=== PATIENT | female | born 1985 | race Caucasian/White ===

== ENCOUNTER 2016-10-17 23:42 | Inpatient (IN) | payer MEDICARE, OTHER ==
--- NOTE | ~2016-10-17 | PUL ---
[address] [place]. [address] NAME: VINNY RODRIGUEZ : 83 STATUS : DIS IN PAT#: [id number] AGE: 31 ADM/REG DATE : 10/18/16 MR#: [id number] REPORT SERV DATE: 10/21/16 DICTATED BY: TIMA HOROWITZ DATE: 10/21/16 REPORT STATUS : Draft TRANSCRIBED BY: MODL DATE: 10/21/16 PULMONARY FUNCTION TEST OVERNIGHT PULSE OXIMETRY TEST: Overnight pulse oximetry on 5 L nasal cannula. The patient was then placed on 50% venturi mask. DATA: 1. 6 hours 37 minutes, mean pulse 104, mean oxygen saturation 95.7%. 2. Time with an oxygen saturation less than 88%, 8 minutes and 4 seconds. 2.0% of the night. INTERPRETATION: Upon review of the data, the patient has significant hypoxemia, looking at the SpO2 curve other than desaturations noted around 130, normal curve, but clinical concern for underlying sleep apnea would always be of concern. Clinical correlation is recommended. HFQ/ROSEMARIE Tima Horowitz MD / [id number] CC: Chu Douglass M.D.
--- NOTE | ~2016-10-17 | HP ---
History And Physical [address] [place]. [address] NAME: VINNY RODRIGUEZ : 83 STATUS : ADM IN [facility] WITH [facility]#: [id number] AGE: 31 ADM/REG DATE : 10/18/16 MR#: [id number] REPORT SERV DATE: 10/18/16 DICTATED BY: JOURDAN HERRERA DATE: 10/18/16 REPORT STATUS : Draft TRANSCRIBED BY: MODL DATE: 10/18/16 DATE OF ADMISSION: 10/18/2016 CHIEF COMPLAINT: A 31-year-old female presenting with urinary tract infection and bacteremia. HISTORY OF PRESENT ILLNESS: The patient's history was obtained through careful interview with the patient, coupled with review of [facility] medical records. The patient began to feel ill on 10/13/2016, with fevers, chills, decreased appetite, nausea, but no vomiting. She has noticed increasing dysuria and a foul odor to her urine with a dark discoloration. She has urinary frequency that especially affects her at nighttime. She came into the emergency department on the day prior to this admission, was given outpatient treatment for urinary tract infection and blood cultures were checked. Today her blood cultures came back positive 2/2 for gram negative jae E. coli, and so she was directed back to the hospital and she admits that she has had no improvement in her symptoms over the last 24 hours, and in fact, she feels as if she is worsening. She describes right flank greater than left flank discomfort, a sharp quality, 5/10 severity that is fairly constant. No shortness of breath. No chest pain. No lightheadedness. No confusion. REVIEW OF SYSTEMS: Otherwise, a 14-point review of systems was obtained and was negative. PAST MEDICAL HISTORY: 1. Obstructive sleep apnea, but noncompliant and intolerant of CPAP. 2. Bipolar disorder. 3. Morbid obesity with a body mass index of 65. 4. Aspiration pneumonia. 5. Previous urinary tract infection. PAST SURGICAL HISTORY: 1. Hysterectomy. 2. Cholecystectomy. 3. Right ankle surgery x5. 4. Bilateral ptosis repair when she was 4 years old. ALLERGIES: NO KNOWN DRUG ALLERGIES. SOCIAL HISTORY: The patient is a smoker. Does not drink alcohol. She is disabled. Lives History And Physical [address] [address] NAME: VINNY RODRIGUEZ : [birth year] STATUS : ADM IN PAT#: [id number] AGE: 31 ADM/REG DATE : 10/18/16 MR#: [id number] REPORT SERV DATE: 10/18/16 DICTATED BY: JOURDAN HERRERA DATE: 10/18/16 REPORT STATUS : Draft TRANSCRIBED BY: ROSEMARIE DATE: 10/18/16 in [place], [place]. She lives with her parents and sister. She has three children at home as well, ages 6, 7, and 14. FAMILY HISTORY: Heart disease. CURRENT MEDICATIONS: 1. Albuterol inhaler. 2. BuSpar 15 mg p.o. b.i.d. 3. Roxicodone 5 mg every 8 hours p.r.n. 4. Geodon 40 mg p.o. b.i.d. PHYSICAL EXAMINATION: VITAL SIGNS: Temperature 99.8, pulse 125, blood pressure 140/65, respiratory rate 18, and O2 saturation 84% on room air. GENERAL: An ill-appearing female, in no evidence of severe distress though. HEENT: Pupils equal, round, and reactive to light. No conjunctival pallor. No scleral icterus. Nares are patent. Oropharynx is clear of obstruction. Moist mucous membranes. NECK: Trachea midline. No thyromegaly. LYMPH: No cervical lymphadenopathy. No supraclavicular lymphadenopathy. RESPIRATORY: Clear to auscultation at bases. No wheezes, rales, or rhonchi. Normal respiratory effort. CARDIOVASCULAR: Tachycardic. Regular rhythm. No murmurs, rubs, or gallops. No extremity edema is appreciated. ABDOMEN: Central pattern of morbid obesity, nontender though. No specific suprapubic abdominal discomfort. I do not appreciate flank tenderness currently on exam. The patient has a nondistended abdomen with no hepatosplenomegaly that can be appreciated. DERMATOLOGICAL: Warm and dry extremities. No pallor. No cyanosis. PSYCHIATRIC: Normal affect. Good mood. Alert and oriented x3. LABORATORY DATA: White blood cell count 10.9, hemoglobin 12, hematocrit 39, and platelets 219. Sodium 139, potassium 3.7, chloride 100, bicarb 30, BUN 8, creatinine 1.06, glucose 121, and albumin 2.6. Serum test negative. Influenza negative. Lactic acid 1.2. Liver enzymes within normal limits. Urinalysis shows large leukocyte esterase, positive nitrites, 94 white blood cells. Blood cultures x2 are positive for gram-negative jae E. coli. History And Physical [address] [place]. [address] NAME: VINNY RODRIGUEZ : 83 STATUS : ADM IN [facility] WITH [facility]#: [id number] AGE: 31 ADM/REG DATE : 10/18/16 MR#: [id number] REPORT SERV DATE: 10/18/16 DICTATED BY: JOURDAN HERRERA DATE: 10/18/16 REPORT STATUS : Draft TRANSCRIBED BY: MODL DATE: 10/18/16 STUDIES: 1. Chest x-ray by my own evaluation shows no acute abnormality, but the patient does have difficult to interpret chest x-ray because of large body habitus. 2. EKG by my own evaluation shows sinus tachycardia. ASSESSMENT AND PLAN: 1. Escherichia coli bacteremia with sepsis. Place on IV antibiotics. Provide supportive care. Negative lactic acid. 2. Urinary tract infection. Await urine culture. Place on IV antibiotics. 3. Obstructive sleep apnea, noncompliant and intolerant of CPAP. Continuous O2 saturation monitor. 4. Morbid obesity. Body mass index of 65. KPL/MODL Jourdan Herrera M.D. / [id number] CC: Chu Douglass M.D.
--- NOTE | ~2016-10-17 | CN ---
Consultation Report [facility] [address] [place]. [address] NAME: LUCERO RODRIGUEZ : 83 STATUS : ADM IN PAT#: [id number] AGE: 31 ADM/REG DATE : 10/18/16 MR#: [id number] REPORT SERV DATE: 10/20/16 DICTATED BY: MAURIZIO RODRIGUES DATE: 10/19/16 REPORT STATUS : Draft TRANSCRIBED BY: MODL DATE: 10/19/16 CONSULTATION NOTE DATE OF CONSULTATION: 10/19/2016 CHIEF COMPLAINT: Hypoxemia and hypercapnia in a morbidly obese patient. HISTORY OF PRESENT ILLNESS: Mrs. Lucero Rodriguez is a 450 pounds white female, who presented to [facility] Emergency Room with complaints of recent UTI and positive blood cultures. It should be noted that, Mrs. Rodriguez has not been hospitalized recently. 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 She has never been prescribed supplemental oxygen before. She is on no nebulized medications. She states that she smokes, but is unwilling to quantify this today. She does have known obstructive sleep apnea, but is only occasionally compliant with the therapy. She has difficulty quantifying her exercise tolerance today. It should be noted that, the patient is somewhat somnolent today and nods off frequently during the conversation. Apparently, the patient had had issues with urination and as such, there was a concern for urinary tract infection. She did have blood cultures that were positive for E coli. She was admitted and was supported with antibiotics as well as supplemental oxygen. Since this time, she is improved to some degree. Because of her hypoxemic and hypercapnic respiratory failure, she has been referred to the Pulmonary Service for further assessment. Mrs. Rodriguez confirms occasional use of her CPAP. She does have almost continuous daytime hypersomnolence. She confirms frequently nodding off in the middle of conversations. She states that her sleep is not restorative. She currently denies any productive cough, wheezing in her chest, or other pneumonia like symptoms. She denies childhood asthma. The patient currently denies murmurs, angina, or palpitations. She has chronic lower extremity edema secondary to her morbid obesity. In regard to constitutional symptoms, she currently denies fever, chills, nausea, vomiting, chest pain, abdominal pain. PAST MEDICAL HISTORY: Morbid obesity, obstructive sleep apnea, bipolar disorder, UTI. PAST SURGICAL HISTORY: Hysterectomy, cholecystectomy, right ankle surgery, bilateral ptosis repair when she was [age] years old. FAMILY HISTORY: The patient denies a family history of lung disease. SOCIAL HISTORY: The patient is a smoker. She is disabled and lives in [place], [place]. She has children at home. Consultation Report [address] [address] NAME: LUCERO RODRIGUEZ : 83 STATUS : ADM IN [facility]#: [id number] AGE: 31 ADM/REG DATE : 10/18/16 MR#: [id number] REPORT SERV DATE: 10/20/16 DICTATED BY: MAURIZIO RODRIGUES DATE: 10/19/16 REPORT STATUS : Draft TRANSCRIBED BY: ROSEMARIE DATE: 10/19/16 TOBACCO/ALCOHOL: As previously mentioned, she is an active smoker. MEDICATIONS: BuSpar 15 mg, oxycodone 5 mg, Geodon 40 mg. ALLERGIES: THE PATIENT HAS NO KNOWN DRUG ALLERGIES. REVIEW OF SYSTEMS: A complete review of systems was performed with pertinent positives and negatives contained within the body of the HPI. PHYSICAL EXAMINATION: VITAL SIGNS: Blood pressure is 88/51, heart rate is 104, T-max is 99.7, respiratory rate is 14, SpO2 is 94% on a Venturi devices. GENERAL: The patient is a pleasant, well-nourished/well-developed female, who is not currently exhibiting any signs of acute distress. The patient is morbidly obese. Skin: Skin with appropriate texture and turgor. No rashes, lesions, or ulcers. Nails are clear without cyanosis or clubbing. Noticed chronic skin changes in the lower extremities. HEENT: Head: Skull is normocephalic/atraumatic. Facies symmetric. No masses or lesions. Eyes: Sclera anicteric, conjunctiva pink without exudates. Extra ocular movements intact. Pupils are equal, round, reactive to light. Ears: Auricles and tragus without pain to palpation. Hearing is grossly intact. Nose: Bilateral nasal patency. Sinuses without tenderness upon palpation. Throat: Dentition. Lips, oral mucosa, tongue, palate, and pharynx pink and moist without lesions. Uvula rises equally on phonation. Tongue midline without deviation. Mallampati class 4. NECK: Neck supple. Trachea midline. No cervical lymphadenopathy appreciated. Significant redundant tissues. THORAX/LUNGS: Thorax is symmetric with equal chest rise. Breath sounds are not audible through the redundant tissue. No rales, wheezes, rhonchi. CARDIOVASCULAR: Regular rate and rhythm. No murmurs, rubs, or gallops. Anterior chest without thrills, heaves, or lifts. ABDOMEN: Soft. Non-distended, non-tender. Active bowel sounds in all four quadrants. No hepatosplenomegaly noted. PERIPHERAL VASCULAR: No edema. No varicosities, stasis changes, open sores, ulcerations, or phlebitis. 2+ pulses in radial and dorsalis pedis. Chronic changes. MUSCULOSKELETAL: Full AROM and PROM in all joints. No evidence of erythema, deformity, or crepitus. NEUROLOGIC: CN II - XII grossly intact. Good muscle bulk and tone bilaterally. Strength 5/5 throughout. PSYCHIATRIC: Patient demonstrates good judgment and insight. Pt is A&O x 3. ACCESSORY DATA: Reveals a white blood cell count of 7600, hemoglobin and hematocrit are 11.6 and 38.5 respectively. Blood glucose is 130. Arterial blood gas reveals a pH of 7.39, PaCO2 of 55, PaO2 of 99, bicarb of 32.8 on 50% Venturi device. Urine is positive for Consultation Report [address] [address] NAME: LUCERO RODRIGUEZ : 83 STATUS : ADM IN [facility]#: [id number] AGE: 31 ADM/REG DATE : 10/18/16 MR#: [id number] REPORT SERV DATE: 10/20/16 DICTATED BY: MAURIZIO RODRIGUES DATE: 10/19/16 REPORT STATUS : Draft TRANSCRIBED BY: MODL DATE: 10/19/16 leukocyte esterase and nitrites. Urine cultures are positive for E coli. Chest x-ray reveals no acute cardiopulmonary process. IMPRESSION: 1. [id number] hypoxemic, hypercapnic respiratory failure. 2. Urinary tract infection. 3. Obstructive sleep apnea with CPAP failure. 4. Obesity hypoventilation syndrome. 5. Tobacco dependency - complicated. PLAN: 1. At this time, we will initiate BiPAP therapy while she is inpatient. Moving forward, she has demonstrated failure on CPAP therapy. We will work with her home health company to transition her to BiPAP therapy. I have stressed the importance of compliance. I would suggest limiting any sedating medications in the short term. 2. In regard to the patient's UTIs, she has been placed on appropriate antibiotics. 3. In regard to the patient's obesity hypoventilation syndrome, I did spend some time discussing the necessity of weight loss. 4. In regard to her tobacco dependency, we have spent greater than 10 minutes discussing the importance of smoking cessation. The aforementioned impression and plan has been discussed with Dr. Marroquin, who will follow further recommendations. We thank you for this consult and look forward to participating in the care of Mrs. Lucero Rodriguez. GBS/MODL Maurizio Rodrigues PA-C / [id number] CC: Chu Douglass M.D.
--- NOTE | ~2016-10-17 | PUL ---
[facility] [address] [place]. [address] NAME: VINNY RODRIGUEZ : 83 STATUS : DIS IN PAT#: [id number] AGE: 31 ADM/REG DATE : 10/18/16 MR#: [id number] REPORT SERV DATE: 10/22/16 DICTATED BY: MARI HOROWITZ DATE: 10/22/16 REPORT STATUS : Draft TRANSCRIBED BY: MODL DATE: 10/22/16 PULMONARY FUNCTION TEST DIAGNOSIS: Sepsis. FINDINGS: FEV1 53%, FVC 48%, ratio of 91. Upon review of the flow-time loop, the patient is reproducible, volume-time loop shows that the patient was not able to exhale greater than 6 seconds. INTERPRETATION: The patient has no airflow obstruction during this testing. As the patient does not have the ability to exhale greater than 6 seconds, this is an inadequate study, which therefore shows a reduced forced vital capacity. However, she may have true restriction due to her significant weight and her age, clinic clinical correlation is advised. HFQ/MODL Mari Horowitz MD / [id number] CC: Chu Douglass M.D.
--- NOTE | ~2016-10-17 | DS ---
Discharge Summary [address] [place]. [address] NAME: VINNY RODRIGUEZ : 83 STATUS : DIS IN PAT#: [id number] AGE: 31 ADM/REG DATE : 10/18/16 MR#: [id number] REPORT SERV DATE: 10/21/16 DICTATED BY: MARC CHEN DATE: 10/20/16 REPORT STATUS : Draft TRANSCRIBED BY: MODL DATE: 10/20/16 ADMISSION DATE: 10/18/2016 DISCHARGE DATE: 10/20/2016 DISCHARGE DIAGNOSES: 1. Escherichia coli sepsis, currently resolved. 2. Escherichia coli urinary tract infection, currently on treatment. 3. Severe restrictive lung disease. 4. Obstructive sleep apnea, intolerant to CPAP in the home setting and failed therapy. 5. Morbid obesity with a BMI of 65. 6. Bipolar disorder. 7. Chronic pain syndrome. 8. History of aspiration pneumonia in the past. CONSULTANTS DURING THIS HOSPITALIZATION: Pulmonology. INVASIVE PROCEDURES DURING THIS HOSPITALIZATION: None. BRIEF HISTORY OF PRESENT ILLNESS: The patient is a morbidly obese, 31-year-old, female presented back to the emergency room with fever, chills, decreased appetite, nausea, and vomiting, so she was admitted. For detailed history and physical exam, please see note dictated by Dr. Dl Herrera on 10/18/2016. HOSPITAL COURSE: After being admitted to the hospital, this patient was given IV Rocephin because she was noted to have urinary tract infection as well as a positive blood culture with gram-negative sepsis. This patient, in total, was treated for three days with IV antibiotics. She was doing well. She was hypoxic mainly because of her severe obstructive sleep apnea. She was given oxygen therapy; however, with oxygen, she was requiring high amounts of oxygen and falling asleep at times. She was very intolerant initially to BiPAP because of high pressure. We have tried her on 12/5 BiPAP settings, and she seemed to do that much better. Her sats on that setting has remained 96% without oxygen; however, whenever she is off the BiPAP, her saturations are down in the 84% range and she requires supplemental O2 at about 4 L. This has been arranged through our Case Management Department. BiPAP has been ordered and arranged which will be delivered in the home setting. Pulmonology has okayed her discharge. Pulmonary function testing was done which showed restrictive lung disease consistent with her obstructive sleep apnea. This patient otherwise has remained stable. We have switched her to oral Levaquin for the E. coli sepsis which was orozco sensitive. She remained stable otherwise, and is being discharged in a stable condition. DISCHARGE DISPOSITION: Home. DISCHARGE ACTIVITY: As tolerated using oxygen, BiPAP, especially at night, and with all naps during the daytime. DISCHARGE DIET: Low sodium, 1800-calorie [employer] diet not to exceed Discharge Summary [address] [address] NAME: VINNY RODRIGUEZ : 83 STATUS : DIS IN PAT#: [id number] AGE: 31 ADM/REG DATE : 10/18/16 MR#: [id number] REPORT SERV DATE: 10/21/16 DICTATED BY: MARC CHEN DATE: 10/20/16 REPORT STATUS : Draft TRANSCRIBED BY: MODL DATE: 10/20/16 2500 calories in the day. DISCHARGE MEDICATIONS: Levaquin 750 mg p.o. once daily for 10 days, BuSpar 15 mg one tablet twice daily, Geodon 40 mg one tablet twice daily, oxycodone 5 mg every eight hours p.r.n. for pain, Ventolin HFA two puffs every four hours p.r.n. for shortness of breath. DISCHARGE FOLLOWUP: With Dr. Daniel Kirk in the outpatient setting for further sleep evaluation. With Dr. Deny Thompson in one to two weeks post discharge. More than 35 minutes spent planning this patient's discharge, reconciling medications, arranging BiPAP, discussing hospital care and followup with the patient, and documenting this discharge. ANTHONY/ROSEMARIE Marc Chen M.D. / [id number] CC: Chu Cartwright,
[2016-10-17 22:40] LABS: BASOPHILS 0.5 %; BASOPHILS ABSOLUTE 0.06 10/3/uL (0.0-0.16); EOSINOPHILS 0.8 %; EOSINOPHILS ABSOLUTE 0.09 10/3/uL (0.0-0.53); HEMATOCRIT 38.9 % (36.0-48.0); HEMOGLOBIN 12.4 g/dL (12.0-16.0); IMMATURE GRANULOCYTES 0.3 %; IMMATURE GRANULOCYTES ABSOLUTE 0.03 10/3/uL (0.0-0.11); LYMPHOCYTES 18.5 %; LYMPHOCYTES ABSOLUTE 2.02 10/3/uL (0.67-4.30); MEAN CORPUS HGB CONC 31.9 g/dL (32.0-36.0); MEAN CORPUSCULAR HEMOGLOB 28.4 pg (26.0-34.0); MEAN CORPUSCULAR VOLUME 89.2 fL (80-100); MEAN PLATELET VOLUME 10.2 fL (9.2-13.0); MONOCYTES 8.7 %; MONOCYTES ABSOLUTE 0.95 10/3/uL (0.21-1.20); NEUTROPHILS 71.2 %; NEUTROPHILS ABSOLUTE 7.76 10/3/uL (2.02-8.40); PLATELET COUNT 219 10/3/uL (150-400); RBC DISTRIBUTION WIDTH 15.7 % (12.0-16.0); RED CELL COUNT 4.36 10/6/uL (4.0-5.6); WHITE BLOOD CELLS 10.9 10/3/uL (4.5-10.5)
[2016-10-17 22:42] LABS: MANUAL DIFF NO %
[2016-10-17 22:44] LABS: ASCORBIC ACID (UR NOT ORDER) NEG (NEG); BILIRUBIN, URINE NEGATIVE (NEG); ER URINALYSIS TAT 0 Hrs 10 Mins; KETONE, URINE NEGATIVE (NEG); LEUKOCYTE ESTERASE(NOT OR LARGE (NEG); NITRITE (URINE) POS (NEG); WBC (NOT ORDERED) (RFLEX) 94 (0-5)
[2016-10-17 22:48] LABS: INTERNATIONAL NORMAL RATI 1.2 UNITS (-); PARTIAL THROMBO TIME 30.9 SEC (22.5-37.2); PROTIME (NOT ORD) 14.8 SEC (12.0-14.5)
[2016-10-17 23:00] LABS: A/G RATIO 0.5 (0.7-1.9); ALBUMIN 2.6 G/DL (3.5-5.0); ALKALINE PHOSPHATASE 79 U/L (45-117); BUN (BLOOD UREA NITROGEN) 8 MG/DL (6-23); CALCIUM, SERUM 8.6 MG/DL (8.5-10.4); CHLORIDE, SERUM 100 MMOL/L (96-112); CO2 (CARBON DIOXIDE) 30 MMOL/L (24-34); CREATININE 1.06 MG/DL (0.55-1.02); GFR AFRICAN AMERICAN 80 ML/MIN (>=60); GFR NON AFRICAN AMERICAN 69 ML/MIN (>=60); GLOBULIN 4.9 G/DL (2.5-4.1); POTASSIUM, SERUM 3.7 MMOL/L (3.5-5.3); SGOT(AST) 10 U/L (5-40); SGPT(ALT) 21 U/L (5-65); SODIUM, SERUM 139 MMOL/L (135-148); TOTAL BILIRUBIN 0.9 MG/DL (0-1.2); TOTAL PROTEIN 7.5 G/DL (6.0-8.5)
[2016-10-17 23:01] LABS: GLUCOSE, SERUM 121 MG/DL (60-99)
[2016-10-17 23:02] LABS: LACTATE 1.2 MMOL/L (0.3-2.4)
[~2016-10-17 23:42] MED LIST: BUSPAR15 M1 PO; BUSPAR15 MG PO; DENIES; LITHIUM CARB300 M1 OR; TRAZODONE150 MG PO
[2016-10-17 23:52] LABS: ALLENS TEST Pos; BE (BASE EXCESS) 4.3 MEQ/L (0 +/- 2.5); CARBOXYHEMOGLOBIN 2.1 % (0-3); DEVICE NC; HCO3 (ACTUAL BICARBONATE) 29.9 MEQ/L (23-27); HEMOBLOGIN CONTENT 12.8 G/DL (12-16); INSTRUMENT SERIAL # 8087; METHEMOGLOBIN 0.2 % (0-3); O2 CONTENT 16.6 VOL% (18-24); PCO2 (CO2 TENSION) 48 MMHG (35-45); PO2 (O2 TENSION) 73 MMHG (79-93); SAMPLE Arterial; pH 7.41 (7.37-7.43)
[2016-10-18] MEDS ORDERED: OXYCOD PO (00:37)
[2016-10-18] MEDS ORDERED: BUSPAR15 M1 PO (00:37)
[2016-10-18] MEDS ORDERED: VENTOLIN HFA INH (00:37)
[2016-10-18] MEDS ORDERED: GEODON40 MG PO (00:38)
[2016-10-18 13:20] LABS: BASOPHILS 0.5 %; BASOPHILS ABSOLUTE 0.04 10/3/uL (0.0-0.16); EOSINOPHILS 2.6 %; HEMATOCRIT 37.8 % (36.0-48.0); HEMOGLOBIN 11.7 g/dL (12.0-16.0); IMMATURE GRANULOCYTES 0.4 %; IMMATURE GRANULOCYTES ABSOLUTE 0.03 10/3/uL (0.0-0.11); LYMPHOCYTES 19.7 %; LYMPHOCYTES ABSOLUTE 1.51 10/3/uL (0.67-4.30); MEAN CORPUSCULAR HEMOGLOB 27.9 pg (26.0-34.0); MEAN PLATELET VOLUME 10.4 fL (9.2-13.0); MONOCYTES 6.7 %; MONOCYTES ABSOLUTE 0.51 10/3/uL (0.21-1.20); NEUTROPHILS 70.1 %; NEUTROPHILS ABSOLUTE 5.37 10/3/uL (2.02-8.40); PLATELET COUNT 214 10/3/uL (150-400); RBC DISTRIBUTION WIDTH 15.8 % (12.0-16.0); WHITE BLOOD CELLS 7.7 10/3/uL (4.5-10.5)
[2016-10-18 13:22] LABS: MANUAL DIFF NO %
[2016-10-18 13:27] LABS: INTERNATIONAL NORMAL RATI 1.1 UNITS (-); PARTIAL THROMBO TIME 28.9 SEC (22.5-37.2); PROTIME (NOT ORD) 13.9 SEC (12.0-14.5)
[2016-10-18 13:44] LABS: A/G RATIO 0.5 (0.7-1.9); ALBUMIN 2.4 G/DL (3.5-5.0); ALKALINE PHOSPHATASE 76 U/L (45-117); BUN (BLOOD UREA NITROGEN) 7 MG/DL (6-23); CALCIUM, SERUM 8.8 MG/DL (8.5-10.4); CHLORIDE, SERUM 103 MMOL/L (96-112); CO2 (CARBON DIOXIDE) 30 MMOL/L (24-34); GFR AFRICAN AMERICAN 98 ML/MIN (>=60); GFR NON AFRICAN AMERICAN 85 ML/MIN (>=60); GLOBULIN 4.7 G/DL (2.5-4.1); GLUCOSE, SERUM 130 MG/DL (60-99); POTASSIUM, SERUM 3.7 MMOL/L (3.5-5.3); SGOT(AST) 11 U/L (5-40); SGPT(ALT) 22 U/L (5-65); SODIUM, SERUM 141 MMOL/L (135-148); TOTAL BILIRUBIN 0.6 MG/DL (0-1.2); TOTAL PROTEIN 7.1 G/DL (6.0-8.5); TROPONIN I <0.02 NG/ML (<0.05)
[2016-10-19 06:33] LABS: BASOPHILS 0.7 %; BASOPHILS ABSOLUTE 0.05 10/3/uL (0.0-0.16); EOSINOPHILS 4.1 %; EOSINOPHILS ABSOLUTE 0.31 10/3/uL (0.0-0.53); HEMATOCRIT 38.5 % (36.0-48.0); HEMOGLOBIN 11.6 g/dL (12.0-16.0); IMMATURE GRANULOCYTES 0.3 %; IMMATURE GRANULOCYTES ABSOLUTE 0.02 10/3/uL (0.0-0.11); LYMPHOCYTES 19.5 %; LYMPHOCYTES ABSOLUTE 1.48 10/3/uL (0.67-4.30); MEAN CORPUS HGB CONC 30.1 g/dL (32.0-36.0); MEAN CORPUSCULAR HEMOGLOB 27.6 pg (26.0-34.0); MEAN CORPUSCULAR VOLUME 91.7 fL (80-100); MEAN PLATELET VOLUME 10.2 fL (9.2-13.0); MONOCYTES 6.1 %; MONOCYTES ABSOLUTE 0.46 10/3/uL (0.21-1.20); NEUTROPHILS 69.3 %; NEUTROPHILS ABSOLUTE 5.27 10/3/uL (2.02-8.40); PLATELET COUNT 243 10/3/uL (150-400); RBC DISTRIBUTION WIDTH 15.5 % (12.0-16.0); WHITE BLOOD CELLS 7.6 10/3/uL (4.5-10.5)
[2016-10-19 06:34] LABS: MANUAL DIFF NO %
[2016-10-19 12:14] LABS: ALLENS TEST Pos; BE (BASE EXCESS) 6.4 MEQ/L (0 +/- 2.5); CARBOXYHEMOGLOBIN 1.4 % (0-3); HCO3 (ACTUAL BICARBONATE) 32.8 MEQ/L (23-27); HEMOBLOGIN CONTENT 12.5 G/DL (12-16); INSTRUMENT SERIAL # 8083; METHEMOGLOBIN 0.1 % (0-3); PCO2 (CO2 TENSION) 55 MMHG (35-45); PO2 (O2 TENSION) 99 MMHG (79-93); SAMPLE Arterial; pH 7.39 (7.37-7.43)
[2016-10-20 08:58] LABS: BASOPHILS 0.5 %; BASOPHILS ABSOLUTE 0.03 10/3/uL (0.0-0.16); EOSINOPHILS 5.4 %; EOSINOPHILS ABSOLUTE 0.34 10/3/uL (0.0-0.53); HEMOGLOBIN 11.6 g/dL (12.0-16.0); IMMATURE GRANULOCYTES 0.3 %; IMMATURE GRANULOCYTES ABSOLUTE 0.02 10/3/uL (0.0-0.11); LYMPHOCYTES 22.6 %; LYMPHOCYTES ABSOLUTE 1.43 10/3/uL (0.67-4.30); MEAN CORPUS HGB CONC 30.5 g/dL (32.0-36.0); MEAN CORPUSCULAR HEMOGLOB 27.8 pg (26.0-34.0); MEAN CORPUSCULAR VOLUME 91.1 fL (80-100); MEAN PLATELET VOLUME 10.7 fL (9.2-13.0); MONOCYTES ABSOLUTE 0.51 10/3/uL (0.21-1.20); NEUTROPHILS 63.2 %; NEUTROPHILS ABSOLUTE 4.01 10/3/uL (2.02-8.40); PLATELET COUNT 280 10/3/uL (150-400); RBC DISTRIBUTION WIDTH 15.1 % (12.0-16.0); RED CELL COUNT 4.17 10/6/uL (4.0-5.6); WHITE BLOOD CELLS 6.3 10/3/uL (4.5-10.5)
[2016-10-20 09:02] LABS: MANUAL DIFF NO %
[2016-10-20 09:07] LABS: ALBUMIN 2.5 G/DL (3.5-5.0); BUN (BLOOD UREA NITROGEN) 7 MG/DL (6-23); CALCIUM, SERUM 8.7 MG/DL (8.5-10.4); CHLORIDE, SERUM 101 MMOL/L (96-112); CO2 (CARBON DIOXIDE) 33 MMOL/L (24-34); CREATININE 0.81 MG/DL (0.55-1.02); GFR AFRICAN AMERICAN 111 ML/MIN (>=60); GFR NON AFRICAN AMERICAN 96 ML/MIN (>=60); PHOSPHORUS, SERUM 2.5 MG/DL (2.5-4.5); SODIUM, SERUM 138 MMOL/L (135-148)
[2016-10-20 09:08] LABS: GLUCOSE, SERUM 98 MG/DL (60-99); POTASSIUM, SERUM 4.7 MMOL/L (3.5-5.3)
[2016-10-20] MEDS ORDERED: LEVAQUIN750 MG PO (16:49)
== END 2016-10-20 18:42 | disposition home or self-care (01) | DRG 871 ==
LOC: ER 23:42 → 4SO 10-18 00:06
PROVIDERS: Internal Medicine; Specialist
DX: A41.51 Sepsis due to Escherichia coli [E. coli] (principal); J96.22 Acute and chronic respiratory failure with hypercapnia; J96.21 Acute and chronic respiratory failure with hypoxia; Z99.81 Dependence on supplemental oxygen; Z68.44 Body mass index [BMI] 60.0-69.9, adult; E66.2 Morbid (severe) obesity with alveolar hypoventilation; N39.0 Urinary tract infection, site not specified; Z91.19 Patient's noncompliance with other medical treatment and regimen; F31.9 Bipolar disorder, unspecified; Z79.891 Long term (current) use of opiate analgesic; F17.218 Nicotine dependence, cigarettes, with other nicotine-induced disorders; K21.9 Gastro-esophageal reflux disease without esophagitis
CPT/HCPCS: 36600; 71010; 71020; 80053; 80069; 81001; 82805; 83605; 83690; 83735; 83880; 84443; 84484; 84703; 85025; 85610; 85730; 87040; 87077; 87086; 87150; 87186; 87804; 94010; 94640; 94660; 94762; 99284; 99285; A9270-GY; J1885; J2765